=== PATIENT | female | born 1945 | race Caucasian/White ===

== ENCOUNTER 2020-10-07 21:16 | Emergency (ER) | payer MEDICARE ==
[~2020-10-07] VITALS: Ht 157.5 cm; Wt 60.2 kg
[2020-10-07] MEDS ORDERED: ADENOSINE 6MG/2ML INJECTION (J0153) As Ordered ONE ×2 (21:33→21:37)
[2020-10-07] MEDS ORDERED: ADENOSINE 6MG/2ML INJECTION (J0153) IV STA (21:37)
[2020-10-07] MEDS ORDERED: NS 500 ML IV ONE (21:40)
[2020-10-07 21:53] LABS: BASO % 0.5 % (0.0-1.0); EOS % 0.5 % (0.0-3.0); HEMATOCRIT 38.3 % (36.0-47.0); HEMOGLOBIN 12.6 g/dl (12.0-15.5); LYMPH # 1.9 10^3/uL (1.5-5.0); LYMPH % 33.9 % (24.0-44.0); MEAN CORPUSCULAR HEMOGLOBIN 28.1 pg (27.0-33.0); MEAN CORPUSCULAR HGB CONC 32.9 g/dl (32.0-36.5); MEAN CORPUSCULAR VOLUME 85.5 fl (80.0-96.0); MONO # 0.9 10^3/uL (0.0-0.8); MONO % 14.9 % (2.0-8.0); NEUTROPHILS # 2.8 10^3/uL (1.5-8.5); PLATELET COUNT, AUTOMATED 231 10^3/uL (150-450); RED BLOOD COUNT 4.48 10^6/uL (4.00-5.40); WHITE BLOOD COUNT 5.7 10^3/uL (4.0-10.0)
[2020-10-07 22:29] LABS: ALBUMIN 4.1 GM/DL (3.2-5.2); ALT/SGPT 23 U/L (12-78); BILIRUBIN,DIRECT 0.1 MG/DL (0.0-0.2); BILIRUBIN,TOTAL 0.3 MG/DL (0.2-1.0); BLOOD UREA NITROGEN 18 MG/DL (7-18); CALCIUM LEVEL 8.6 MG/DL (8.8-10.2); CARBON DIOXIDE LEVEL 26 MEQ/L (21-32); CHLORIDE LEVEL 110 MEQ/L (98-107); CK-MB VALUE MASS 3.9 NG/ML (<3.6); CPK CREATINE PHOSPHOKINASE 187 U/L (26-192); CREATININE FOR GFR 0.66 MG/DL (0.55-1.30); FREE T4 0.97 NG/DL (0.76-1.46); GLOMERULAR FILTRATION RATE > 60.0 (>39); GLUCOSE, FASTING 102 MG/DL (70-100); LIPASE 135 U/L (73-393); MAGNESIUM LEVEL 2.2 MG/DL (1.8-2.4); MB/CK RELATIVE INDEX 2.09 (< OR =4); NT-PRO BNP 77 PG/ML (<125); POTASSIUM SERUM 3.5 MEQ/L (3.5-5.1); SODIUM LEVEL 142 MEQ/L (136-145); TROPONIN I < 0.02 NG/ML (< 0.10)
--- NOTE | 2020-10-07 22:49 | REPVR ---
PROCEDURE INFORMATION: Exam: XR Chest Exam date and time: 10/07/20 (9:57pm) Age: 75 years old Clinical indication: Tachycardia and chest pain TECHNIQUE: Imaging protocol: Portable CXR Views: 1 view COMPARISON: No relevant prior studies available FINDINGS: Lungs: Unremarkable. No consolidation. Pleural spaces: Unremarkable. No pleural effusions. No pneumothorax. Heart/Mediastinum: Unremarkable. No cardiomegaly. Bones/joints: 2 small suture anchors project over the left humeral head. IMPRESSION: No acute findings. Electronically signed by: Ara Martínez On 10/07/2020 22:48:21 PM
[2020-10-07 23:11] VITALS: BP 141/79
--- NOTE | 2020-10-08 07:22 | ECGEPIP ---
[facility] - ED Test Date: 2020-10-07 Pat Name: CHRISS COOK Department: Room: - Gender: Female [employer]: : 1945 Requested By: JERRI COLVIN Order Number: [id number] Reading MD: Renny Rodriguez Measurements Intervals [place] Rate: 92 P: 50 NC: 156 QRS: 64 QRSD: 76 T: 49 QT: 358 QTc: 442 Interpretive Statements Normal sinus rhythm INCOMPLETE RIGHT BUNDLE BRANCH BLOCK Nonspecific ST abnormality NO PRIORS FOR COMPARISON Electronically Signed on 10-08-2020 7:22:18 EDT by Renny Rodriguez
== END 2020-10-07 23:23 | disposition home or self-care (01) ==
LOC: M ED 21:16
DX: I47.2 Ventricular tachycardia (principal); E78.5 Hyperlipidemia, unspecified; F41.9 Anxiety disorder, unspecified; Z88.8 Allergy status to other drugs, medicaments and biological substances
CPT/HCPCS: 71045; 80048; 80076; 82550; 82553; 83690; 83735; 83880; 84439; 84443; 84484; 85025; 93005; 93041; 94760; 96374; 99285; J0153